=== PATIENT | female | born 1975 | race Caucasian/White ===

== ENCOUNTER 2020-06-22 17:36 | Emergency (ER) | payer SELFPAY ==
[2020-06-22 17:39] VITALS: BP 139/61; PULSE 101; RESP 18; TEMP 36.7; O2SAT 100
--- NOTE | 2020-06-22 18:16 | ED.GENADULT ---
HPI - General Adult General Chief complaint: Dental/Oral Stated complaint: teeth problems Time Seen by Provider: 06/22/20 17:55 Source: patient Mode of arrival: ambulatory Limitations: no limitations History of Present Illness HPI narrative: Patient is a 45-year-old female who presents with dental caries patient notes history of gross dental caries is not currently seeing a dentist does not take anything for herself patient notes some bleeding of the gums and irritation to the gums worse with eating patient denies fever chills nausea vomiting or other complaints Related Data Allergies Allergy/AdvReac Type Severity Reaction Status Date / Time ibuprofen [From Motrin] Allergy Hives Verified 06/22/20 17:42 Penicillins Allergy Hives Verified 06/22/20 17:42 Review of Systems Review of Systems: All systems reviewed & are unremarkable except as noted in HPI and below PMFSH Social History Social History Smoking status: Current every day smoker Exam Narrative: Exam Narrative: GENERAL: Well-appearing, well-nourished, and in no acute distress. HEAD: Normocephalic, atraumatic. EYES: PERRLA and EOMI. ENT: Nares clear, no rhinorrhea or epistaxis. Mucous membranes moist. Gross dental caries uvula midline no trismus or drooling NECK: Supple. No adenopathy or masses. CHEST: Clear to auscultation. No respiratory distress. No wheezes rales or rhonchi HEART: Regular rate and rhythm. No murmur heard. EXTREMITIES: Normal range of motion. No edema. SKIN: Warm, dry, no rash. NEURO: No focal deficits. Alert and oriented x3. PSYCH: Normal mood and affect. Course Course Emergency Course: Patient will be referred to dentistry for further care Vital Signs Vital signs: Vital Signs Temperature 98.0 F 06/22/20 17:39 Pulse Rate 101 H 06/22/20 17:39 Respiratory Rate 18 06/22/20 17:39 Blood Pressure 139/61 06/22/20 17:39 Pulse Oximetry 100 06/22/20 17:39 Temperature 98.0 F 06/22/20 17:39 Pulse Rate 101 H 06/22/20 17:39 Respiratory Rate 18 06/22/20 17:39 Blood Pressure 139/61 06/22/20 17:39 Pulse Oximetry 100 06/22/20 17:39 Medical Decision Making MDM Narrative Medical decision making narrative: Paitents pain and complaint coupled with physical findings are consistant with dentalgia. There are no focal signs of space occupying lesions that are compromising to the ariway. The floor of the mouth is soft with no signs of Ludwigs Angina. Patient is without trismus or drooling and able to swallow secreations. Patient is felt appropriate for discharge home with dental follow up. Vital Signs Vital Signs: Vital Signs Temperature 98.0 F 06/22/20 17:39 Pulse Rate 101 H 06/22/20 17:39 Respiratory Rate 18 06/22/20 17:39 Blood Pressure 139/61 06/22/20 17:39 Pulse Oximetry 100 06/22/20 17:39 Temperature 98.0 F 06/22/20 17:39 Pulse Rate 101 H 06/22/20 17:39 Respiratory Rate 18 06/22/20 17:39 Blood Pressure 139/61 06/22/20 17:39 Pulse Oximetry 100 06/22/20 17:39 Discharge Plan Discharge Clinical Impression: Dental caries Patient Disposition: Home, Self-Care Condition: Stable Instructions: Antibiotic Form, Toothache (ED) Additional Instructions: Follow-up with dentistry in the next 7 days for re-evaluation. Go to ER for shortness of breath, difficulty breathing, chest pain, fever/chills, weakness, nauseau/vomitting, unable to swallow or open the mouth etc. or any other concerns. Follow patient education sheets Take any prescribed medications as directed. Stay well-hydrated If you do not have a drug allergy to tylenol and can tolerate it then take tylenol as needed for discomfort/pain. Prescriptions: New acetaminophen [Tylenol Extra Strength] 500 mg tablet 500 mg PO QID PRN (Reason: fever or pain) Qty: 7 RF: 0 chlorhexidine gluconate [Peridex] 0.12 % mouthwash 15 ml MUCOUS MEM BID Qty:
== END 2020-06-22 18:34 | disposition home or self-care (01) ==
PROVIDERS: Emergency Provider Emergency Medicine
DX: K02.9 Dental caries, unspecified (principal); F17.200 Nicotine dependence, unspecified, uncomplicated
CPT/HCPCS: 99283

== ENCOUNTER 2020-07-06 17:33 | Emergency (ER) | payer SELFPAY ==
[2020-07-06 18:43] VITALS: BP 108/56; PULSE 99; RESP 20; TEMP 36.3; O2SAT 100
--- NOTE | 2020-07-06 18:49 | PC.NURSE ---
Patient state that she did have suicidal concerns post approximately 20 years ago. She denies any current SI/HI.
--- NOTE | 2020-07-06 18:52 | PC.NURSE ---
ED Charge notified that per new suicidal risk process patient had been flagged. She will discuss plan with the EDP.
--- NOTE | 2020-07-06 18:55 | PC.NURSE ---
patient decided after being triaged that she was in too much pain and that she did not want to wait.
--- NOTE | 2020-07-06 18:57 | PC.NURSE ---
Spoke with Dr. Hurt regarding patient [place] assessment. He stated crisis does not need to be involved since pt is not actively thinking about harming herself, or no plan.
== END 2020-07-06 18:55 | disposition left against medical advice (07) ==
LOC: ANHED 19:05
DX: R68.84 Jaw pain (principal)
CPT/HCPCS: 99199

== ENCOUNTER 2021-11-26 12:06 | Emergency (ER) | payer SELFPAY ==
--- NOTE | ~2021-11-26 | XR_ITS ---
EXAMINATION: XR wrist RT min 3V DATE: 11/26/2021 12:21 INDICATION: Right wrist pain. TECHNIQUE: 4 views of right wrist were obtained. COMPARISON: None. FINDINGS: Bone alignment is normal. No fracture. Joint spaces are well maintained. IMPRESSION: 1. Normal right wrist. Reviewed, dictated and finalized at location A. [employer] IMPRESSION: 1. Normal right wrist.
[2021-11-26 12:07] VITALS: BP 123/70; PULSE 100; RESP 17; TEMP 36.1; O2SAT 100
--- NOTE | 2021-11-26 12:16 | ED.GENADULT ---
HPI - General Adult General Chief complaint: Unspecified Stated complaint: ?growth to R wrist Time Seen by Provider: 11/26/21 12:10 Source: patient History of Present Illness HPI narrative: Patient presents with a growth on her right wrist. She is noted for the past few days seems to be getting larger and having increasing pain so she came to the ER for evaluation. Her pain is achy, constant, worse with moving her wrist pain improves with flexion at the wrist worse with extension. Denies any trauma to the area denies any fevers, cough, congestion. Related Data Home Medications Medication Instructions Recorded Confirmed No Home Medications 11/26/21 11/26/21 Allergies Allergy/AdvReac Type Severity Reaction Status Date / Time ibuprofen [From Motrin] Allergy Hives Verified 11/26/21 12:07 Penicillins Allergy Hives Verified 11/26/21 12:07 Review of Systems Review of Systems: CONSTITUTIONAL: Denies fever, chills, or sweats. EYES: Denies visual changes, redness, or discharge. ENT: Denies rhinorrhea, congestion, sore throat, or otalgia. CARDIOVASCULAR: Denies chest pain, palpitations, or edema. RESPIRATORY: Denies cough or dyspnea. GASTROINTESTINAL: Denies abdominal pain, nausea, vomiting, or diarrhea. GENITOURINARY: Denies dysuria or hematuria. SKIN: Denies rash or itching. MUSCULOSKELETAL: Denies back pain, joint pain, or myalgia. NEUROLOGIC: Denies headache, numbness, dizziness, or weakness. PSYCHIATRIC: Denies anxiety or depression. All systems reviewed & are unremarkable except as noted in HPI and below PMFSH Social History Social History Smoking status: Current every day smoker Exam Narrative: GENERAL: Well-appearing, well-nourished, and in no acute distress. HEAD: Normocephalic, atraumatic. EYES: PERRLA and EOMI. ENT: Nares clear, no rhinorrhea or epistaxis. Mucous membranes moist. NECK: Supple. No masses. No JVD EXTREMITIES: 0.5 x 0.5 cm growth on the ventral aspect of the risks on the radial side semimobile soft SKIN: Warm, dry, no rash. NEURO: No focal deficits. Alert and oriented x3. PSYCH: Normal mood and affect. Course Vital Signs Vital signs: Vital Signs Temperature 36.1 C L 11/26/21 12:07 Pulse Rate 100 11/26/21 12:07 Respiratory Rate 17 11/26/21 12:07 Blood Pressure 123/70 11/26/21 12:07 Pulse Oximetry 100 11/26/21 12:07 Temperature 36.1 C L 11/26/21 12:07 Pulse Rate 100 11/26/21 12:07 Respiratory Rate 17 11/26/21 12:07 Blood Pressure 123/70 11/26/21 12:07 Pulse Oximetry 100 11/26/21 12:07 Medical Decision Making MDM Narrative Medical decision making narrative: H&P as above, vss, pt looks clinically well, exam small growth on the ventral aspect of the wrist, img clinically unremarkable, additional labs/img considered, symptomatic relief available as needed, on reevaluation pt continues to looks clinically well. Suspect ganglion cyst, dns abscess, infected joint, fracture, dislocation, major neurovascular compromise. plan to tx/monitor as op w/ plastics f/u findings/plan discussed with pt, pt agree/comfortable with plan, return precautions given Vital Signs Vital Signs: Vital Signs Temperature 36.1 C L 11/26/21 12:07 Pulse Rate 100 11/26/21 12:07 Respiratory Rate 17 11/26/21 12:07 Blood Pressure 123/70 11/26/21 12:07 Pulse Oximetry 100 11/26/21 12:07 Temperature 36.1 C L 11/26/21 12:07 Pulse Rate 100 11/26/21 12:07 Respiratory Rate 17 11/26/21 12:07 Blood Pressure 123/70 11/26/21 12:07 Pulse Oximetry 100 11/26/21 12:07 Discharge Plan Discharge Clinical Impression: Ganglion cyst Patient Disposition: Home, Self-Care Condition: Improved Instructions: Antibiotic Form, Ganglion Cyst (ED) Additional Instructions: Please return if your symptoms worsen or fail to improve. If you develop a fever, can not eat/drink anything or if you have any other tracey
== END 2021-11-26 12:27 | disposition home or self-care (01) ==
PROVIDERS: Emergency Provider Emergency Medicine
DX: M67.431 Ganglion, right wrist (principal); F17.200 Nicotine dependence, unspecified, uncomplicated
CPT/HCPCS: 73110; 99283